=== PATIENT | female | born 1960 | race Caucasian/White ===

== ENCOUNTER 2021-09-06 07:15 | Day surgery (SDC) | payer BC ==
[~2021-09-06] VITALS: Ht 170.2 cm; Wt 87.0 kg
[~2021-09-06 07:15] MED LIST: AMLO5 PO; EPIPEN0.3 MG/0.3 IM; ESTRADIOL42.5 GM VG
[2021-09-06] MEDS ORDERED: AMLO5 (07:51)
--- NOTE | 2021-09-06 09:02 | NUR ---
09/06/21 0902 Alva Shahid BUPIVACAINE 0.5% 50 MLS MIXED WITH EPI 0.25 ML PER ORDER. MULTI DOSE VIAL, DIVIDED, MIXED, & VERIFIED IN OR BY RN. 30 MLS INJECTED AT OPSITE BY DR LOPEZ FOR PAIN CONTROL.
== END 2021-09-06 10:30 | disposition home or self-care (01) ==
LOC: ORSCSDS 07:15
PROVIDERS: Podiatrist Foot & Ankle Surgery
PROC: 0SPF04Z Removal of Internal Fixation Device from Right Ankle Joint, Open Approach (ICD-10-PCS; principal; 2021-09-06 08:25)
DX: T84.84XA Pain due to internal orthopedic prosthetic devices, implants and grafts, initial encounter (principal); I10 Essential (primary) hypertension; E78.00 Pure hypercholesterolemia, unspecified; Z79.899 Other long term (current) drug therapy
CPT/HCPCS: A9270; J0171; J0690; J1885; J2250; J2704; J3010; J7120